=== PATIENT | female | born 1950 | race American Indian/Alaskan Native ===

== ENCOUNTER 2018-01-25 08:14 | Day surgery (SDC) | payer MEDICARE, OTHER ==
[2015-11-23 11:33] VITALS: BMI 33.0
[2018-01-25] MEDS ORDERED: Propofol 10 mg/ml Inj (20 ML) ONE (08:40)
[2018-01-25] MEDS ORDERED: Sodium Chloride 0.9% 1,000 ML IV SCH (09:15)
[2018-01-25 09:37] VITALS: O2SAT 98
[2018-01-25 10:03] VITALS: BP 143/78; PULSE 52; RESP 16; TEMP 97.8
== END 2018-01-25 10:26 | disposition home or self-care (01) ==
LOC: ENDO 08:14
PROVIDERS: ATTEND Internal Medicine Gastroenterology
DX: K57.30 Diverticulosis of large intestine without perforation or abscess without bleeding (principal); K64.1 Second degree hemorrhoids; K63.89 Other specified diseases of intestine; D64.9 Anemia, unspecified; Z85.038 Personal history of other malignant neoplasm of large intestine; Z90.49 Acquired absence of other specified parts of digestive tract
CPT/HCPCS: 45378; J2001; J2704; J7030; J7040

== ENCOUNTER → 2018-06-21 | Outpatient (CLI) | payer MEDICARE, OTHER | LOC: LAB 14:23 ==